=== PATIENT | female | born 1980 | race Hispanic/Latino ===

== ENCOUNTER 2017-12-18 21:12 | Emergency (ER) | payer BC ==
[2017-12-18 21:23] VITALS: RESP 18; TEMP 98; O2SAT 98
[2017-12-18] MEDS ORDERED: DiphenhydrAMINE 50 mg/ml Inj IM STA (21:33)
[2017-12-18] MEDS ORDERED: DiphenhydrAMINE 50 mg/ml Inj ONE (21:36)
--- NOTE | 2017-12-18 21:39 | ED PDOC ---
HPI: Allergic Reaction Time Seen by Provider: 12/18/17 21:28 Chief Complaint (Nursing): Allergic Reaction History Per: Patient History/Exam Limitations: no limitations Onset/Duration Of Symptoms: Mins Additional Complaint(s): HX of HTN presenting with supposed allergic reaction, states she was eating an apple <1 hour prior to arrival and started feeling a "itching, scratching" sensation in throat and that the sensation in her tongue had changed. Unsure of allergies. Denies shortness of breath, difficulty breathing, sensation of throat closure, rash, or other symptoms. Patient states she tried to take benadryl but she vomited it up. Past Medical History Reviewed: Historical Data, Nursing Documentation, Vital Signs Vital Signs: Last Vital Signs Temp 98.0 F 12/18/17 21:19 Pulse 90 12/18/17 21:19 Resp 18 12/18/17 21:19 BP Pulse Ox 98 12/18/17 21:19 - Medical History PMH: HTN - Family History Family History: States: Unknown Family Hx - Allergies Allergies/Adverse Reactions: Allergies Allergy/AdvReac Type Severity Reaction Status Date / Time Penicillins Allergy RASH Verified 12/18/17 21:19 Review of Systems ROS Statement: Except As Marked, All Systems Reviewed And Found Negative Physical Exam - Reviewed Nursing Documentation Reviewed: Yes Vital Signs Reviewed: Yes - Physical Exam Appears: Positive for: Well, Non-toxic, No Acute Distress Head Exam: Positive for: ATRAUMATIC, NORMAL INSPECTION, NORMOCEPHALIC Skin: Positive for: Normal Color, Warm, DRY Eye Exam: Positive for: EOMI, Normal appearance, PERRL ENT: Positive for: Normal ENT Inspection Neck: Positive for: Normal, Painless ROM Cardiovascular/Chest: Positive for: Regular Rate, Rhythm Respiratory: Positive for: CNT, Normal Breath Sounds Gastrointestinal/Abdominal: Positive for: Normal Exam, Soft Back: Positive for: Normal Inspection Extremity: Positive for: Normal ROM Neurologic/Psych: Positive for: Alert, Oriented - ECG O2 Sat by Pulse Oximetry: 98 Pulse Ox Interpretation: Normal - Progress ED Course And Treament: 930PM A/P: Hx of HTN presenting with supposed allergic reaction -patient is very well appearing speaking full sentences, no resp distress -possibly mild allergic reaction, will give IM benadryl and PO zofran for vomiting -will re-eval 1030PM- -Patient is feeling much better -Symptoms improved -Advised to followup with PMd -tolerating PO -return precautions given Re-evaluation Time: 21:30 Condition: Re-examined, Improved Disposition - Clinical Impression Clinical Impression: Allergic reaction - Patient ED Disposition Is Patient to be Admitted: No - Disposition Disposition: Routine/Home Disposition Time: 22:31 Condition: IMPROVED Instructions: Food Allergy Forms: [facility] ([place])
[2017-12-18 23:04] VITALS: BP 119/71; PULSE 86
== END 2017-12-18 22:45 | disposition home or self-care (01) ==
LOC: H.ER 21:12
DX: T78.40XA Allergy, unspecified, initial encounter (principal); Z88.0 Allergy status to penicillin; I10 Essential (primary) hypertension
CPT/HCPCS: 96372; 99282; J1200